=== PATIENT | female | born 1985 | race Caucasian/White ===

== ENCOUNTER 2016-08-19 21:46 | Emergency (ER) | payer OTHER ==
[~2016-08-19] VITALS: Ht 152.4 cm; Wt 92.4 kg
[~2016-08-19 21:46] MED LIST: LEVOIUD IU; TRAM-10 PO
[2016-08-19 21:49] VITALS: TEMP 36.6; Ht 152.4 cm; Wt 92.4 kg
[2016-08-19] MEDS ORDERED: ACETAMINOPHEN 500 MG TAB PO STA (22:12)
[2016-08-19] MEDS ORDERED: KETOROLAC TROMETHAMINE 30 MG/ML VIAL IV STA (22:12)
[2016-08-19] MEDS ORDERED: PSEUDOEPHEDRINE HCL 30 MG TAB PO STA (22:12)
[2016-08-19] MEDS ORDERED: ALBUT/IPRATROP 3MG/0.5MG NEB 3 ML VIAL INH STA (22:19)
[2016-08-19] MEDS ORDERED: DEXAMETHASONE SOD INJ 10 MG/ML VIAL IV ONE (22:30)
[2016-08-19 22:59] LABS: BASO % 0.4 %; BASO ABS # 0.03 K/uL (0-0.2); COMPLETE YES; EOS % 2.7 %; IG% 0.3 %; LYMPH % 27.5 %; LYMPH ABS # 1.91 K/uL (1.2-3.4); MEAN CELL VOLUME 81.9 fL (80-100); MEAN CORPUSCULAR HEMOGLOBIN 28.4 pg (25-34); MEAN CORPUSCULAR HGB CONC 34.7 g/dl (32-36); MEAN PLATELET VOLUME 10.1 fL (7.4-10.4); MONO % 10.9 %; NEUT % 58.2 %; PLATELET COUNT 234 K/uL (130-400); RED BLOOD COUNT 4.64 M/uL (4.2-5.4); WHITE BLOOD COUNT 6.95 K/uL (4.8-10.8)
[2016-08-19 23:10] LABS: URINE APPEARANCE CLEAR (CLEAR); URINE BILIRUBIN NEG (NEG); URINE COLOR YELLOW; URINE NITRITE NEG (NEG); URINE PH 5.5 (4.5-7.5); URINE SPECIFIC GRAVITY 1.031 (1.000-1.030); UROBILINOGEN NEG (NEG); ZZUR CULT IF INDIC CLEAN CATCH NO
[2016-08-19 23:20] LABS: MANUAL MICROSCOPIC REQUIRED? NO; REVIEW REQ? NO
[2016-08-19 23:22] LABS: BUN/CREATININE RATIO 17.3 (10-20); CALCIUM 8.6 mg/dl (8.5-10.1); CREATININE 0.65 mg/dl (0.60-1.20); POTASSIUM 3.5 mmol/L (3.5-5.1); PREG INTERNAL NEGATIVE QC NEG CLEAR BACKGROUND; PREG INTERNAL POSITIVE QC POS CONTROL LINE
[2016-08-20 00:31] VITALS: BP 115/88; PULSE 86; O2SAT 99
[2016-08-20] MEDS ORDERED: ALBUTEROL HFA 8 GM INHALER INH STA (00:35)
[2016-08-20] MEDS ORDERED: DOXY100C2 PO (00:37)
[2016-08-20 00:45] LABS: INFLUENZA A PCR Neg for Influ A (NEG); INFLUENZA B PCR Neg for Influ B (NEG)
[2016-08-20] MEDS ORDERED: DOXYCYCLINE HYCLATE 100 MG CAP PO ONE (00:45)
--- NOTE | 2016-08-20 04:42 | EMERGENCY ROOM VISIT NOTE ---
History First contact with patient: 22:10 Chief Complaint: CONGESTION Stated Complaint: SINUS CONGESTION,DRAINAGE FEVER 5+ DAYS,FATIGUE History of Present Illness The patient is a 31 year old female who presents to the Emergency Room with complaints of cough, congestion, sinus pain and congestion, fever, chills, sore throat for the past week with back pain. Patient denies neck stiffness, chest pain, dyspnea, abdominal pain, vomiting, diarrhea. She is tolerating by mouth fluids and food. Other people have been sick. She went to urgent care and had a negative strep test. Review of Systems See HPI for pertinent positives & negatives. A total of 10 systems reviewed and were otherwise negative. Past Medical/Surgical History Medical Problems: (1) Morbid obesity with body mass index (BMI) of 40.0 to 44.9 in adult Surgical Problems: (1) No history of previous surgery Social History Smoking Status: Never Smoker Alcohol Use: none Marital Status: single Housing Status: lives with family, lives with friends Occupation Status: employed Current/Historical Medications Scheduled Doxycycline Hyclate (Vibramycin), 100 MG PO BID Levonorgestrel (Iud) (Mirena), 1 UNIT IU UD Scheduled PRN Tramadol (Ultram), 1-2 TAB PO Q4H PRN for Pain Allergies Coded Allergies: Cefaclor (Verified Allergy, Mild, 05/12/16) Penicillins (Verified Allergy, Mild, 05/12/16) Amoxicillin (Unverified Allergy, Unknown, UNKNOWN, 05/12/16) Physical Exam Vital Signs Date Time Temp Pulse Resp B/P Pulse Ox O2 Delivery O2 Flow Rate FiO2 08/20/16 00:31 86 18 115/88 99 Room Air 08/19/16 22:57 97 Room Air 08/19/16 21:49 36.6 95 21 140/96 96 Room Air Pain Rating (0-10): 0 Physical Exam VITALS: Vitals are noted on the nurse's note and reviewed by myself. Vital signs stable. GENERAL: Pleasant female, in no acute distress, nondiaphoretic, well-developed well-nourished. SKIN: The skin was without rashes, erythema, edema, or bruising. There is no tenting of the skin. Capillary reflex less than 2 seconds. HEAD: Normocephalic atraumatic. EARS: External auditory canals clear, tympanic membranes pearly flores without erythema or effusion bilaterally. EYES: Pupils equal round and reactive to light and accommodation. Conjunctivae without injection, sclerae without icterus. Extraocular movements intact. NOSE: Patent, turbinates without inflammation or discharge. Bilateral maxillary sinus tenderness. MOUTH: Mucous membranes moist. Tonsils are not enlarged. Pharynx without erythema or exudate. Uvula midline. Airway patent. Tongue does not deviate. NECK: Supple without nuchal rigidity. No lymphadenopathy. No thyromegaly. Cervical spine is nontender. No JVD. No meningeal signs HEART: Regular rate and rhythm without murmurs gallops or rubs. LUNGS: Clear to auscultation bilaterally without wheezes, rales or rhonchi. No dullness to percussion. No retractions or accessory muscle use. ABDOMEN: Positive bowel sounds x 4. Normal tympanic percussion. Soft, nontender, without masses or organomegaly. Brush sign negative. No guarding or rebound tenderness. No CVA tenderness MUSCULOSKELETAL: No muscle atrophy, erythema, or edema noted. NEURO: Patient was alert and oriented to person place and time. Normal sensation to light and sharp touch. No focal neurological deficits. Medical Decision & Procedures Laboratory Results 08/19/16 22:47 Red Blood Count 4.64, Mean Corpuscular Volume 81.9, Mean Corpuscular Hemoglobin 28.4, Mean Corpuscular Hemoglobin Concent 34.7, Mean Platelet Volume 10.1, Neutrophils (%) (Auto) 58.2, Lymphocytes (%) (Auto) 27.5, Monocytes (%) (Auto) 10.9, Eosinophils (%) (Auto) 2.7, Basophils (%) (Auto) 0.4, Neutrophils # (Auto ) 4.04, Lymphocytes # (Auto) 1.91, Monocytes # (Auto) 0.76, Eosinophils # (Auto ) 0.19, Basophils # (Auto) 0.03 08/19/16 22:47 Test 08/19/16 21:50 08/19/16 22:47 08/19/16 22:55 Urine Color YELLOW Urine Appearance CLEAR (CLEAR) Urine pH 5.5 (4.5-7.5) Urine Specific Leslie 1.031 (1.000-1.030) Urine Protein NEG (NEG) Urine Glucose (UA) 2+ (NEG) Urine Ketones 1+ (NEG) Urine Occult Blood NEG (NEG) Urine Nitrite NEG (NEG) Urine Bilirubin NEG (NEG) Urine Urobilinogen NEG (NEG) Urine Leukocyte Esterase NEG (NEG) White Blood Count 6.95 K/uL (4.8-10.8) Red Blood Count 4.64 M/uL (4.2-5.4) Hemoglobin 13.2 g/dL (12.0-16.0) Hematocrit 38.0 % (37-47) Mean Corpuscular Volume 81.9 fL (80-100) Mean Corpuscular Hemoglobin 28.4 pg (25-34) Mean Corpuscular Hemoglobin Concent 34.7 g/dl (32-36) Platelet Count 234 K/uL (130-400) Mean Platelet Volume 10.1 fL (7.4-10.4) Neutrophils (%) (Auto) 58.2 % Lymphocytes (%) (Auto) 27.5 % Monocytes (%) (Auto) 10.9 % Eosinophils (%) (Auto) 2.7 % Basophils (%) (Auto) 0.4 % Neutrophils # (Auto) 4.04 K/uL (1.4-6.5) Lymphocytes # (Auto) 1.91 K/uL (1.2-3.4) Monocytes # (Auto) 0.76 K/uL (0.11-0.59) Eosinophils # (Auto) 0.19 K/uL (0-0.5) Basophils # (Auto) 0.03 K/uL (0-0.2) RDW Standard Deviation 39.2 fL (36.4-46.3) RDW Coefficient of Variation 13.1 % (11.5-14.5) Immature Granulocyte % (Auto) 0.3 % Immature Granulocyte # (Auto) 0.02 K/uL (0.00-0.02) Anion Gap 9.0 mmol/L (3-11) Est Creatinine Clear Calc Drug Dose 126.0 ml/min Estimated GFR () 136.2 Estimated GFR (Non- 117.5 BUN/Creatinine Ratio 17.3 (10-20) Calcium Level 8.6 mg/dl (8.5-10.1) Human Chorionic Gonadotropin, Qual NEG (NEG) Monoscreen NEG (NEG) Influenza Type A (RT-PCR) Neg for Influ A (NEG) Influenza Type A Antigen Neg for Influ A (NEG) Influenza Type B Antigen Neg for Influ B (NEG) Influenza Type B (RT-PCR) Neg for Influ B (NEG) Medications Administered Medications (Trade) Dose Ordered Sig/Nhi Route Start Time Stop Time Status Last Admin Dose Admin Ketorolac Tromethamine (Toradol Inj) 30 mg NOW STAT IV 08/19/16 22:12 08/19/16 22:17 DC 08/19/16 22:12 30 MG Pseudoephedrine HCl (Sudafed Tab) 60 mg NOW STAT PO 08/19/16 22:12 08/19/16 22:17 DC 08/19/16 22:48 60 MG Acetaminophen (Tylenol Tab) 1,000 mg NOW STAT PO 08/19/16 22:12 08/19/16 22:17 DC 08/19/16 22:12 1,000 MG Albuterol/ Ipratropium (Duoneb) 3 ml NOW STAT INH 08/19/16 22:19 08/19/16 22:20 DC 08/19/16 22:19 3 ML Dexamethasone Sodium Phosphate (Decadron Inj) 10 mg NOW ONCE IV 08/19/16 22:30 08/19/16 22:31 DC 08/19/16 22:30 10 MG Doxycycline Hyclate (Vibramycin Cap) 100 mg ONE ONCE PO 08/20/16 00:45 08/20/16 00:46 DC 08/20/16 00:52 100 MG Albuterol (Ventolin Hfa Inhaler) 2 puffs ONE STAT INH 08/20/16 00:35 08/20/16 00:37 DC 08/20/16 00:52 2 PUFFS ED Course Prior records/ancillary studies reviewed. Triage Nursing notes reviewed. The patient's history was concerning for cold symptoms Differential diagnosis: Etiologies such as viral syndrome, otitis, pharyngitis, pneumonia, influenza, meningitis, urinary tract infection, sepsis, bacteremia, as well as others were entertained. Physical examination: Patient was alert, interactive and well-appearing ER treatment provided: Tylenol, Sudafed, doxycycline On reassessment the patient felt better. Diagnostics interpreted by me: The labs revealed negative strep test. Negative flu test Imaging studies: Chest x-ray with no acute consolidation, pneumothorax or free air per my interpretation This appears to be consistent with sinusitis with bronchitis. Patient felt better after being medicated as above. She's been symptomatic for over a week. She was started on antibiotics. She is advised follow-up family care in a few days or here in the ER sooner for high fevers, neck status, lethargy, worsening signs or symptoms or as needed. Patient no signs of meningitis. She is well-appearing. By the evaluation outlined above emergent etiologies such as otitis, pharyngitis, pneumonia, meningitis, urinary tract infection, sepsis, bacteremia, as well as others were deemed relatively unlikely. The pt informed about the findings as listed above. All questions were answered and pleased with the treatment. Return instructions were outlined and the patient was discharged in stable condition. Outpatient prescription management: Doxycycline Referral: The patient was referred back to their primary care physician for follow-up in 2 to 3 days for a recheck of the current condition. Medical Decision As above Impression Primary Impression: Sinusitis, acute Departure Information Dispostion Home / Self-Care Condition GOOD Prescriptions Doxycycline Hyclate (VIBRAMYCIN) 100 Mg Cap 100 MG PO BID for 7 Days, #14 CAP Prov: Lynette Kovacs PA-C 08/20/16 Forms HOME CARE DOCUMENTATION FORM, Work Instructions, Return To Work: 2 days IMPORTANT VISIT INFORMATION Patient Instructions Sinusitis Acute, [facility] Additional Instructions Doxycycline 100mg: Take one pill twice daily for seven days for your infection. Take with food, but avoid dairy. Avoid prolonged sun exposure since this medication makes you temporarily more susceptible to sunburns. All antibiotics can cause diarrhea. If this occurs and you feel worse or it does not resolve in 1-2 days follow up with your doctor or return to the Emergency Department as this could be signs of serious underlying problems. Any medication can cause an allergic reaction, stop the pills immediately and return to the ER for rash, hives, breathing difficulties, or swelling. Acetaminophen(Tylenol) may be used for fever or pain. Use 1000mg every six hours as needed. Avoid using more than 3000mg in a 24 hour period. (AND/OR) Ibuprofen(Motrin, Advil) may be used for fever or pain. Use 600mg every six hours as needed. Take with food. Avoid using more than 2400mg in a 24 hour period. Do not use 2400mg per day for more than three consecutive days without physician direction. Prolonged inappropriate use can lead to stomach upset or ulcers. Afrin nasal spray: 2-3 sprays to each nostril twice daily as needed for congestion. Do not use for more than 3-4 days because it can lead to worsening rebound congestion. Pseudoephedrine(Sudaphed): 30-60mg every 6 hours as needed for nasal congestion. Do not take this with other stimulant products or supplements. Albuterol Inhaler: Take 2 puffs four times daily for seven days, then as needed. Rest and drink plenty of fluids. Controlling your fever with Tylenol and Ibuprofen as above will make you feel better. Wash your hands after nose blowing, sneezing, or coughing. Most germs are spread through contact, therefore improper hygiene may result in your close contacts and loved ones becoming ill just like you. Continue current medications. Return to the ER for severe headache, neck stiffness, chest pain, difficulty breathing, fevers, vomiting, worsening of your condition, or as needed. Follow up with your primary physician this week for a recheck of your current condition. Work Instructions Return To Work: 2 days Problem Qualifiers Primary Impression: Sinusitis, acute Sinusitis location: maxillary Recurrence: not specified as recurrent Qualified Codes: J01.00 - Acute maxillary sinusitis, unspecified
--- NOTE | 2016-08-20 06:08 | DIAGNOSTIC IMAGING REPORT ---
CHEST 2 VIEWS ROUTINE CLINICAL HISTORY: cough/fever dyspnea COMPARISON STUDY: No previous studies for comparison. FINDINGS: The bones soft tissues and hemidiaphragms are normal. The cardiomediastinal silhouette is normal. The lungs are clear. The pulmonary vasculature is normal. IMPRESSION: Negative chest. Electronically signed by: Dereje Rodriguez M.D. 08/20/2016 6:06 AM Dictated Date/Time: 08/20/2016 6:06 AM
== END 2016-08-20 00:54 | disposition home or self-care (01) ==
LOC: C.EDB 21:47 → C.EDC 08-20 00:54
DX: J01.00 Acute maxillary sinusitis, unspecified (principal); E66.01 Morbid (severe) obesity due to excess calories

== ENCOUNTER 2017-03-05 21:00 | Emergency (ER) | payer OTHER ==
[~2017-03-05] VITALS: Ht 152.4 cm; Wt 98.7 kg
[~2017-03-05 21:00] MED LIST changes: +DOXY100C2 PO; -TRAM-10 PO
[2017-03-05 21:02] VITALS: TEMP 36.7; Ht 152.4 cm; Wt 98.7 kg
--- NOTE | 2017-03-05 21:38 | DIAGNOSTIC IMAGING REPORT ---
L HAND MIN 3 VIEWS ROUTINE CLINICAL HISTORY: Left hand pain, swelling and bruising following injury. COMPARISON: None FINDINGS: Alignment of the left hand is anatomic. No acute fracture is identified. Carpal bones are intact. IMPRESSION: No acute fracture or dislocation of the left hand. Electronically signed by: Patric Mireles M.D. 03/05/2017 9:37 PM Dictated Date/Time: 03/05/2017 9:35 PM
--- NOTE | 2017-03-05 21:46 | EMERGENCY ROOM VISIT NOTE ---
ED Visit Note First contact with patient: 21:33 CHIEF COMPLAINT: Hand injury HISTORY OF PRESENT ILLNESS: This 32-year-old female patient presented to the emergency department ambulatory after they injured the left hand when she was removing a window air conditioner and the window fell onto her hand. There was no audible snap or crack at that time. The patient rates the pain as sharp and 6 /10. The patient denies any numbness or tingling. The patient does not have injuries to the wrist. Normal range of motion of the wrist. The patient has not had an injury to this hand before. REVIEW OF SYSTEMS: A 6 system review of systems was completed with positives and pertinent negatives in the HPI. ALLERGIES: Amoxicillin, cephalosporin MEDICATIONS: None PMH: None SOCIAL HISTORY: The patient lives locally with family PHYSICAL EXAM: Vital Signs: Reviewed Nurse's notes, vital signs stable. GENERAL : This is a 32-year-old female, in no acute distress, but appears to be in pain , well-developed, well-nourished. MUSCULOSKELETAL: There is no deformity of the left hand. There is tenderness over the fourth and fifth metacarpals. There is mild ecchymosis and a superficial nonbleeding abrasion. There is no thenar or hypothenar eminence atrophy. Normal thumb opposition to all fingers. Conduit Cleaner strength 5/5. There is no laceration. Capillary refill less than 2 seconds. No tenderness of the fingers or wrist. Full range of motion of the wrist. No snuff box tenderness. Radial pulse 2+. NEURO: Alert and oriented to person, place, and time. Normal sensation to light and sharp touch. EMERGENCY DEPARTMENT COURSE: I examined the patient. An x-ray of the left hand was reviewed by myself and radiology and shows no fracture or dislocation. An Edi wrap was placed. The patient was discharged home in good condition. [~ rep ct add3]] L HAND MIN 3 VIEWS ROUTINE CLINICAL HISTORY: Left hand pain, swelling and bruising following injury. COMPARISON: None FINDINGS: Alignment of the left hand is anatomic. No acute fracture is identified. Carpal bones are intact. IMPRESSION: No acute fracture or dislocation of the left hand. Current/Historical Medications Scheduled Levonorgestrel (Iud) (Mirena), 1 UNIT IU UD Allergies Coded Allergies: Cefaclor (Verified Allergy, Mild, 03/05/17) Penicillins (Verified Allergy, Mild, 03/05/17) Amoxicillin (Unverified Allergy, Unknown, UNKNOWN, 03/05/17) Vital Signs Date Time Temp Pulse Resp B/P (MAP) Pulse Ox O2 Delivery O2 Flow Rate FiO2 03/05/17 21:02 36.7 83 18 141/97 98 Room Air Departure Information Impression Primary Impression: Hand contusion Dispostion Home / Self-Care Condition GOOD Referrals No Doctor, Assigned (PCP) Patient Instructions ED Contusion Hand, My [facility] Additional Instructions Motrin 600 mg every 6-8 hours for moderate pain Ice over the next 24-48 hours, intermittently Wear the Edi wrap when up and about over the next 3-5 days Recheck with your family doctor if no improvement in 5-7 days Return to the emergency Department with any worsening symptoms Problem Qualifiers Primary Impression: Hand contusion Encounter type: initial encounter Laterality: left Qualified Codes: S60.222A - Contusion of left hand, initial encounter
[2017-03-05 22:05] VITALS: BP 142/94; PULSE 80; O2SAT 98
== END 2017-03-05 22:05 | disposition home or self-care (01) ==
LOC: C.EDB 21:01 → C.EDD 22:05
DX: S60.222A Contusion of left hand, initial encounter (principal); W20.8XXA Other cause of strike by thrown, projected or falling object, initial encounter